=== PATIENT | male | born 1990 | race Caucasian/White ===

== ENCOUNTER 2017-04-05 09:16 | Emergency (ER) | payer OTHER ==
[~2017-04-05] VITALS: Ht 177.8 cm; Wt 84.2 kg
[2017-04-05] MEDS ORDERED: SODIUM CHLORIDE FLUSH 10ML SYR IVF ONE (10:00)
[2017-04-05 10:15] LABS: BLOOD UREA NITROGEN 26 mg/dL (7-18)
[2017-04-05] MEDS ORDERED: DIPHENHYDRAMINE 50 MG/ML, 1ML ONE (12:19)
[2017-04-05] MEDS ORDERED: DIPHENHYDRAMINE 50 MG/ML, 1ML IVPush ONE (13:00)
[2017-04-05 13:31] VITALS: BP 126/78
== END 2017-04-05 13:55 | disposition home or self-care (01) ==
LOC: ED 12:42
DX: S30.1XXA Contusion of abdominal wall, initial encounter (principal); V00.831A Fall from motorized mobility scooter, initial encounter; Y93.89 Activity, other specified; Y99.8 Other external cause status; Y92.89 Other specified places as the place of occurrence of the external cause
CPT/HCPCS: 36415; 74177; 76857; 80048; 82040; 85025; 96374; 99285; J1200